=== PATIENT | female | born 1995 | race African-American/Black ===

== ENCOUNTER 2021-08-07 13:12 | Emergency (ER) | payer OTHER, SELFPAY ==
[2021-08-07 13:19] VITALS: BP 149/86; PULSE 84; RESP 16; TEMP 36.6; O2SAT 100
--- NOTE | 2021-08-07 13:32 | PC.NURSE ---
6717-[facility]CTED [facility] @ [phone] SPOKE WITH [facility] WILL HAVE [employer]IOR PROJECT MANAGER RESPOND.
--- NOTE | 2021-08-07 13:32 | PC.NURSE ---
Pt denies head or neck trauma. Is consenting to kit collection at this time. VLADIMIR nurse activated.
--- NOTE | 2021-08-07 13:42 | PC.NURSE ---
1342-[facility] WITH [facility] RETURNED CALL WILL BE HERE IN ~30 MINUTES.
--- NOTE | 2021-08-07 14:12 | PC.NURSE ---
VLADIMIR nurse arrived and introduced to patient
--- NOTE | 2021-08-07 17:00 | PC.NURSE ---
Pt offered and refused shower at this time
[2021-08-07 17:52] LABS: Basophils Percent Auto 0.3 % (0.2-1.2); Eosinophils Absolute Auto 0.2 K/mm3 (0-0.3); Eosinophils Percent Auto 3.6 % (0-4.4); Hemoglobin 11.7 g/dL (12.0-15.0); Immature Granulocyte Absolute 0.01 K/mm3 (0.00-0.031); Immature Granulocyte Percent A 0.2 % (0-0.5); Lymphocytes Absolute Auto 2.36 K/mm3 (0.9-3.2); Lymphocytes Percent Auto 37.2 % (18.3-44.2); Mean Corpuscular HGB Conc 31.6 g/dl (32-36); Mean Corpuscular Hemoglobin 28.3 pg (26-34); Mean Corpuscular Volume 89.4 fl (80-100); Mean Platelet Volume 9.3 fl (7.4-10.4); Monocytes Absolute Auto 0.6 K/mm3 (0.1-0.6); Monocytes Percent Auto 8.7 % (2.6-8.5); Neutrophils Absolute Auto 3.2 K/mm3 (1.3-6.7); Platelet Count Result 390 k/mm3 (150-375); Red Blood Count 4.14 M/mm3 (4.2-5.4); Red Cell Distribution Width 14.7 % (11.5-14.5); White Blood Count 6.3 K/mm3 (4.5-10.0)
[2021-08-07 18:02] LABS: Alanine Aminotransferase 15 U/L (4-35); Albumin Level 4.5 g/dL (3.5-5.1); Alkaline Phosphatase 90 U/L (38-126); Anion Gap 7 mmol/L (8-16); Aspartate Amino Transferase 30 U/L (14-36); Bilirubin,Total 0.3 mg/dL (0.2-1.3); Blood Urea Nitrogen 9 mg/dL (7-17); Calcium 9.3 mg/dL (8.4-10.2); Carbon Dioxide 24 mmol/L (22-30); Chloride 106 mmol/L (98-107); Estimated CRCL calculation 101 ml/min; Estimated Glomerular Filt Rate > 60; Glucose 90 mg/dL (65-110); Lipase 162 U/L (23-300); Sodium 137 mmol/L (137-145)
[2021-08-07 18:02] LABS: Add Urine Microscopic? NO; Appearance Urine Clear (Clear); Bilirubin Urine Negative (Negative); Blood Urine Negative (Negative); Color Urine Straw (Yellow); Glucose Urine UA Negative (Negative); Ketones Urine Negative (Negative); Leukocyte Esterase Ur Negative LEU/UL (Negative); Nitrate Urine Negative (Negative); Protein Urine Negative (Negative); Specific Grav Ur 1.011 (1.001-1.035); Urobilinogen Urine Negative mg/dL (<2.0)
[2021-08-07] MEDS: metroNIDAZOLE 250 MG TABLET 2000 MG PO (18:07)
[2021-08-07] MEDS: EMTRICITABINE-TENOFOVIR 100 MG-150 MG TABLET 2 TAB PO (18:08)
[2021-08-07] MEDS: ONDANSETRON HCL ODT 4 MG TABLET PO (18:08)
[2021-08-07] MEDS: DOXYCYCLINE HYCLATE 100 MG TABLET PO (18:08)
[2021-08-07] MEDS: cefTRIAXone 1 GM VIAL 0.5 GM IM (18:08)
[2021-08-07] MEDS: LIDOCAINE HCL 1% LOCAL INJ 20 ML VIAL (18:09)
[2021-08-07] MEDS: RALTEGRAVIR 400 MG TABLET PO (18:09)
[2021-08-07] MEDS: levonorgestreL 1.5 MG TABLET PO (18:09)
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
[2021-08-07 18:41] VITALS: BP 120/73; PULSE 63; RESP 16; TEMP 36.6; O2SAT 100
[2021-08-07 18:42] LABS: HIV 1/2 Ab P24 Ag Result Negative (Negative)
[2021-08-08 06:08] LABS: Rapid Plasma Reagin Non-Reactive (NonReactive)
== END 2021-08-07 19:00 | disposition home or self-care (01) ==
PROVIDERS: Physician Assistant; Emergency Provider Emergency Medicine
DX: T76.21XA Adult sexual abuse, suspected, initial encounter (principal); N80.9 Endometriosis, unspecified; B37.3 Candidiasis of vulva and vagina
CPT/HCPCS: 36415; 80053; 81003; 81025; 82248; 83690; 85025; 86592; 86703; 87205; 87491; 87591; 96372; 99285; A9270; G0432; J0696